=== PATIENT | female | born 1965 | race American Indian/Alaskan Native ===

== ENCOUNTER 2018-01-19 08:16 | Outpatient (CLI) | payer BC ==
--- NOTE | 2018-01-19 10:24 | Ultrasound Report ---
BILATERAL DIGITAL DIAGNOSTIC MAMMOGRAM with CAD and RIGHT BREAST ULTRASOUND: 01/19/18 CLINICAL: Right breast pain. COMPARISON:None. She had a mammogram at [facility] in November 2016 but it is not available. FINDINGS: The breasts are mostly fatty with bilateral residual heterogeneously dense fibroglandular densities.A partially circumscribed oval right inner focal asymmetry persist with spot compression.Benign calcifications of the left breast. Ultrasound of the right breast (including all four quadrants and the retroareolar area) was performed and demonstrated a benign cyst at 2 o'clock 13 cm from the nipple measuring 6 x 5 x 3 mm. An oval solid smooth hypoechoic mass at 6 o'clock 6 cm from the nipple measures 1.5 x 1.1 x 0.7 cm and correlates with the mammographic asymmetry. No other mass or cyst. IMPRESSION: A probably benign 1.5 cm right breast mass at 6 o'clock 6 cm from the nipple. 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 We will obtain the previous mammogram from [facility] and make comparison to determine if the right breast mass is stable in size. BI-RADS CATEGORY: 0--Needs Additional Evaluation COMMENT: Patient follow-up letters are generated by our [employer] application.
== END 2018-01-19 08:17 | disposition home or self-care (01) ==
LOC: SPVWC 08:16
PROVIDERS: ATTEND Family Medicine
DX: N60.01 Solitary cyst of right breast (principal); R92.1 Mammographic calcification found on diagnostic imaging of breast
CPT/HCPCS: 77066